=== PATIENT | male | born 1970 | race African-American/Black ===

== ENCOUNTER 2021-11-02 18:22 | Inpatient (IN) | payer OTHER ==
[2021-11-02] MEDS ORDERED: PIPERACILLIN/TAZOB 3.375 GM 3.375 GM in DEXTROSE 5%-WATER - 50 ML IVPB ONE (20:01)
[2021-11-02] MEDS ORDERED: PIPERACILLIN/TAZOB 3.375 GM 3.375 GM/50 ML BAG IVPB ONE (20:35)
[2021-11-02 21:08] LABS: BASO % 0.3 % (0-2.0); EOS % 0.1 % (0-4.5); HEMATOCRIT 33.8 % (35.4-49); HEMOGLOBIN 11.3 GM/dL (11.7-16.9); LYMPH % 7.4 % (8-40); MCH 30.9 pg (25.7-33.7); MCHC 33.6 g/dl (32.0-35.9); MEAN CELL VOLUME 92.1 fl (80-96); MEAN PLT VOLUME 8.4 fl (7.5-11.1); MONO % 12.1 % (3.8-10.2); NEUT % 80.1 % (42.8-82.8); PLATELET COUNT 100 10^3/uL (134-434); RBC 3.67 M/mm3 (4.00-5.60); RDW 14.5 % (11.9-15.9); WHITE BLOOD COUNT 11.8 K/mm3 (4.0-10.0)
[2021-11-02 21:14] LABS: CALCIUM 9.1 mg/dL (8.5-10.1)
[2021-11-02 21:15] LABS: ALBUMIN 2.7 g/dl (3.4-5.0); BLOOD UREA NITROGEN 13.7 mg/dL (7-18)
[2021-11-02 21:18] LABS: CREATININE 0.9 mg/dL (0.55-1.3)
[2021-11-02 21:20] LABS: TOT PROT 6.8 g/dl (6.4-8.2)
[2021-11-02] MEDS ORDERED: VANCOMYCIN 1 GM in D5W (PRE-DOCKED) 1,000 MG/250 ML IVPB ONE (21:38)
[2021-11-02] MEDS ORDERED: VANCOMYCIN 1 GRAM (PRE-DOCKED) 1,000 MG/250 ML BAG IVPB ONE (22:07)
[2021-11-03] MEDS ORDERED: SODIUM CHLORIDE 1,000 ML IV STA (00:37)
[2021-11-03] MEDS ORDERED: PIPERACILLIN/TAZOB 3.375 GM 3.375 GM/50 ML BAG IVPB ONE (03:12)
[2021-11-03] MEDS: PIPERACILLIN/TAZOB 3.375 GM 3.375 GM/50 ML BAG IVPB SCH ×2 (03:49→10:14)
[2021-11-03 05:42] VITALS: BMI 27.5
[2021-11-03] MEDS: SODIUM CHLORIDE 1,000 ML IV SCH ×2 (06:08→14:12)
[2021-11-03 08:30] LABS: EPI CELLS 6 /uL (0-25.1); HYALINE CASTS 1 /uL (0-3.1); PH,URINE 5.5 (5.0-8.0); URINE APPEARANCE TURBID; URINE BACTERIA 4 /uL (0-1359); URINE BILIRUBIN NEGATIVE (NEGATIVE); URINE COLOR YELLOW; URINE GLUCOSE (UA) NEGATIVE (NEGATIVE); URINE KETONE TRACE (NEGATIVE); URINE LEUK ESTERASE TRACE (NEGATIVE); URINE NITRITE NEGATIVE (NEGATIVE); URINE PROTEIN TRACE (NEGATIVE); URINE RBC 38 /uL (0-23.9); URINE UROBILINOGEN 0.2 mg/dL (0.2-1.0); URINE WBC 14 /uL (0-25.8)
[2021-11-03] MEDS: VANCOMYCIN 1 GM in D5W (PRE-DOCKED) 1,000 MG/250 ML IVPB SCH ×2 (09:18→23:00)
[2021-11-03] MEDS: NICOTINE 7 MG/24 HOURS TOPICAL PATCH TD SCH ×2 (09:18→09:20)
[2021-11-03 09:23] LABS: HEMATOCRIT 31.8 % (35.4-49); HEMOGLOBIN 10.4 GM/dL (11.7-16.9); MCH 30.4 pg (25.7-33.7); MCHC 32.8 g/dl (32.0-35.9); MEAN CELL VOLUME 92.7 fl (80-96); MEAN PLT VOLUME 8.4 fl (7.5-11.1); PLATELET COUNT 94 10^3/uL (134-434); RBC 3.43 M/mm3 (4.00-5.60); RDW 14.7 % (11.9-15.9); WHITE BLOOD COUNT 8.8 K/mm3 (4.0-10.0)
[2021-11-03 09:51] LABS: CALCIUM 8.1 mg/dL (8.5-10.1)
[2021-11-03 09:52] LABS: ALBUMIN 2.4 g/dl (3.4-5.0); BLOOD UREA NITROGEN 10.7 mg/dL (7-18)
[2021-11-03 09:53] LABS: MAGNESIUM 1.6 mg/dL (1.8-2.4)
[2021-11-03 09:55] LABS: CREATININE 0.7 mg/dL (0.55-1.3)
[2021-11-03 09:56] LABS: TOT PROT 5.9 g/dl (6.4-8.2)
[2021-11-03 09:57] LABS: BILIRUBIN,TOTAL 0.8 mg/dL (0.2-1)
[2021-11-03] MEDS ORDERED: VANCOMYCIN 1 GM in D5W (PRE-DOCKED) 1,000 MG/250 ML IVPB SCH (10:00)
[2021-11-03 12:01] LABS: ANISOCYTOSIS 0; MACROCYTOSIS 0
[2021-11-03 12:03] LABS: PLATELET ESTIMATE SLT DECREASE
[2021-11-03] MEDS ORDERED: DEXTROSE 5%-WATER - 50 ML IVPB ONE ×2 (14:38→20:28)
[2021-11-03] MEDS ORDERED: PIPERACILLIN/TAZOBACTAM 3.375 GM VIAL IVPB ONE ×2 (14:38→20:28)
[2021-11-03] MEDS ORDERED: PIPERACILLIN/TAZOB 3.375 GM 3.375 GM in DEXTROSE 5%-WATER - 3.375 GM/50 ML IVPB IVPB SCH (15:00)
[2021-11-03] MEDS ORDERED: MAGNESIUM OXIDE 400 MG TABLET (FP) PO ONE (17:01)
[2021-11-03] MEDS: PIPERACILLIN/TAZOB 3.375 GM 3.375 GM in DEXTROSE 5%-WATER - 50 ML IVPB SCH (22:04)
[2021-11-04] MEDS ORDERED: PIPERACILLIN/TAZOBACTAM 3.375 GM VIAL IVPB ONE ×4 (01:42→21:23)
[2021-11-04] MEDS ORDERED: DEXTROSE 5%-WATER - 50 ML IVPB ONE ×4 (01:43→21:24)
[2021-11-04] MEDS: PIPERACILLIN/TAZOB 3.375 GM 3.375 GM in DEXTROSE 5%-WATER - 50 ML IVPB SCH ×4 (02:15→21:29)
[2021-11-04] MEDS ORDERED: CARVEDILOL 3.125 MG TABLET (FP) PO SCH (10:00)
[2021-11-04] MEDS: PANTOPRAZOLE 40 MG TABLET PO SCH (10:10)
[2021-11-04 10:11] LABS: HEMATOCRIT 30.5 % (35.4-49); HEMOGLOBIN 10.1 GM/dL (11.7-16.9); MCH 30.7 pg (25.7-33.7); MCHC 33.1 g/dl (32.0-35.9); MEAN CELL VOLUME 92.7 fl (80-96); MEAN PLT VOLUME 8.8 fl (7.5-11.1); PLATELET COUNT 106 10^3/uL (134-434); RBC 3.29 M/mm3 (4.00-5.60); RDW 14.3 % (11.9-15.9); WHITE BLOOD COUNT 5.6 K/mm3 (4.0-10.0)
[2021-11-04] MEDS: VANCOMYCIN 1 GM in D5W (PRE-DOCKED) 1,000 MG/250 ML IVPB SCH ×2 (10:11→22:37)
[2021-11-04 10:32] LABS: ALBUMIN 2.2 g/dl (3.4-5.0); BLOOD UREA NITROGEN 8.2 mg/dL (7-18)
[2021-11-04 10:33] LABS: CALCIUM 7.9 mg/dL (8.5-10.1); MAGNESIUM 1.8 mg/dL (1.8-2.4)
[2021-11-04 10:34] LABS: PHOSPHOROUS 3.8 mg/dL (2.5-4.9)
[2021-11-04 10:35] LABS: BILIRUBIN,TOTAL 0.6 mg/dL (0.2-1); CREATININE 0.7 mg/dL (0.55-1.3); TOT PROT 5.9 g/dl (6.4-8.2)
[2021-11-04 10:38] LABS: LDL CHOLESTEROL (ONLY SJRH) 59 mg/dL (5-100)
[2021-11-04 10:39] LABS: CHOLESTEROL 91 mg/dL (50-200); TRIGLYCERIDES 80 mg/dL (0-150)
[2021-11-04] MEDS: NICOTINE 7 MG/24 HOURS TOPICAL PATCH TD SCH (10:39)
[2021-11-04 10:40] LABS: HDL CHOLESTEROL 21 mg/dL (40-60)
[2021-11-04] MEDS: SPIRONOLACTONE 25 MG TABLET PO SCH (11:09)
[2021-11-04] MEDS: FUROSEMIDE 40 MG TABLET (FP) PO SCH (11:10)
[2021-11-04 12:43] LABS: ANISOCYTOSIS 2+; MACROCYTOSIS 2+
[2021-11-04] MEDS: CARVEDILOL 3.125 MG TABLET (FP) PO SCH (21:29)
[2021-11-04] MEDS: SODIUM CHLORIDE 1,000 ML IV SCH (22:37)
[2021-11-05] MEDS ORDERED: DEXTROSE 5%-WATER - 50 ML IVPB ONE ×4 (02:29→20:49)
[2021-11-05] MEDS ORDERED: PIPERACILLIN/TAZOBACTAM 3.375 GM VIAL IVPB ONE ×4 (02:29→20:49)
[2021-11-05] MEDS: SODIUM CHLORIDE 1,000 ML IV SCH (02:33)
[2021-11-05] MEDS: PIPERACILLIN/TAZOB 3.375 GM 3.375 GM in DEXTROSE 5%-WATER - 50 ML IVPB SCH ×4 (02:34→21:10)
[2021-11-05 09:21] LABS: HEMATOCRIT 30.4 % (35.4-49); HEMOGLOBIN 10.3 GM/dL (11.7-16.9); MCH 30.7 pg (25.7-33.7); MCHC 33.8 g/dl (32.0-35.9); MEAN CELL VOLUME 90.8 fl (80-96); MEAN PLT VOLUME 8.6 fl (7.5-11.1); PLATELET COUNT 113 10^3/uL (134-434); RBC 3.35 M/mm3 (4.00-5.60); RDW 14.7 % (11.9-15.9)
[2021-11-05] MEDS: PANTOPRAZOLE 40 MG TABLET PO SCH (09:32)
[2021-11-05] MEDS: NICOTINE 7 MG/24 HOURS TOPICAL PATCH TD SCH (09:32)
[2021-11-05] MEDS: CARVEDILOL 3.125 MG TABLET (FP) PO SCH ×2 (09:32→21:10)
[2021-11-05] MEDS: FUROSEMIDE 40 MG TABLET (FP) PO SCH (09:32)
[2021-11-05] MEDS: SPIRONOLACTONE 25 MG TABLET PO SCH (09:32)
[2021-11-05 09:45] LABS: ALBUMIN 2.3 g/dl (3.4-5.0); BLOOD UREA NITROGEN 4.8 mg/dL (7-18); CALCIUM 8.3 mg/dL (8.5-10.1); MAGNESIUM 1.8 mg/dL (1.8-2.4)
[2021-11-05 09:48] LABS: CREATININE 0.6 mg/dL (0.55-1.3); PHOSPHOROUS 4.6 mg/dL (2.5-4.9)
[2021-11-05 09:50] LABS: BILIRUBIN,TOTAL 0.8 mg/dL (0.2-1)
[2021-11-05 10:40] LABS: ANISOCYTOSIS 0; MACROCYTOSIS 0
[2021-11-05] MEDS: VANCOMYCIN 1 GM in D5W (PRE-DOCKED) 1,000 MG/250 ML IVPB SCH (11:13)
[2021-11-05] MEDS ORDERED: VANCOMYCIN/WATER BAGS 1,250 MG/250 ML BAG IVPB SCH (15:15)
[2021-11-05] MEDS: VANCOMYCIN/WATER BAGS 1,250 MG/250 ML BAG IVPB SCH (21:11)
[2021-11-06] MEDS ORDERED: PIPERACILLIN/TAZOBACTAM 3.375 GM VIAL IVPB ONE ×3 (01:43→15:31)
[2021-11-06] MEDS: PIPERACILLIN/TAZOB 3.375 GM 3.375 GM in DEXTROSE 5%-WATER - 50 ML IVPB SCH ×3 (02:46→15:58)
[2021-11-06 08:43] LABS: BASO % 0.8 % (0-2.0); EOS % 2.6 % (0-4.5); HEMATOCRIT 32.9 % (35.4-49); HEMOGLOBIN 11.2 GM/dL (11.7-16.9); LYMPH % 42.9 % (8-40); MCH 30.8 pg (25.7-33.7); MEAN CELL VOLUME 90.7 fl (80-96); MEAN PLT VOLUME 8.5 fl (7.5-11.1); MONO % 20.2 % (3.8-10.2); NEUT % 33.5 % (42.8-82.8); PLATELET COUNT 129 10^3/uL (134-434); RBC 3.63 M/mm3 (4.00-5.60); RDW 14.4 % (11.9-15.9); WHITE BLOOD COUNT 5.3 K/mm3 (4.0-10.0)
[2021-11-06 08:53] LABS: ALBUMIN 2.4 g/dl (3.4-5.0); BLOOD UREA NITROGEN 6.1 mg/dL (7-18); CALCIUM 8.2 mg/dL (8.5-10.1); MAGNESIUM 1.7 mg/dL (1.8-2.4)
[2021-11-06 08:56] LABS: CREATININE 0.8 mg/dL (0.55-1.3); PHOSPHOROUS 5.1 mg/dL (2.5-4.9)
[2021-11-06 08:57] LABS: BILIRUBIN,TOTAL 0.6 mg/dL (0.2-1); TOT PROT 6.4 g/dl (6.4-8.2)
[2021-11-06] MEDS ORDERED: DEXTROSE 5%-WATER - 50 ML IVPB ONE ×2 (09:19→15:31)
[2021-11-06] MEDS: SPIRONOLACTONE 25 MG TABLET PO SCH (09:28)
[2021-11-06] MEDS: FUROSEMIDE 40 MG TABLET (FP) PO SCH (09:28)
[2021-11-06] MEDS: PANTOPRAZOLE 40 MG TABLET PO SCH (09:28)
[2021-11-06] MEDS: CARVEDILOL 3.125 MG TABLET (FP) PO SCH ×2 (09:28→21:27)
[2021-11-06] MEDS: NICOTINE 7 MG/24 HOURS TOPICAL PATCH TD SCH (09:28)
[2021-11-06] MEDS: VANCOMYCIN/WATER BAGS 1,250 MG/250 ML BAG IVPB SCH (10:50)
[2021-11-06 12:41] LABS: ANISOCYTOSIS 0; HELMET CELLS 0; HOWELL-JOLLY BODIES 0; MACROCYTOSIS 0; OVALOCYTE 0; ROULEAU 0; SICKELED CELLS 0; TARGET CELLS 0; TEAR DROP CELLS 0; TOXIC GRANULATION 0
[2021-11-06] MEDS ORDERED: MAGNESIUM OXIDE 400 MG TABLET (FP) PO ONE (17:17)
[2021-11-06] MEDS ORDERED: DEXTROSE 5%-WATER 100 ML IVPB ONE (21:25)
[2021-11-06] MEDS: CEFTRIAXONE 2 GM in DEXTROSE 5%-WATER 100 ML IVPB SCH (21:27)
[2021-11-07] MEDS ORDERED: DEXTROSE 5%-WATER 100 ML IVPB ONE (08:29)
[2021-11-07] MEDS: CEFTRIAXONE 2 GM in DEXTROSE 5%-WATER 100 ML IVPB SCH (09:07)
[2021-11-07] MEDS: NICOTINE 7 MG/24 HOURS TOPICAL PATCH TD SCH (09:07)
[2021-11-07] MEDS: FUROSEMIDE 40 MG TABLET (FP) PO SCH (09:08)
[2021-11-07] MEDS: SPIRONOLACTONE 25 MG TABLET PO SCH (09:08)
[2021-11-07] MEDS: PANTOPRAZOLE 40 MG TABLET PO SCH (09:08)
[2021-11-07] MEDS: CARVEDILOL 3.125 MG TABLET (FP) PO SCH ×2 (09:08→21:25)
[2021-11-07 10:05] LABS: BASO % 1.1 % (0-2.0); EOS % 2.5 % (0-4.5); HEMATOCRIT 36.7 % (35.4-49); HEMOGLOBIN 11.9 GM/dL (11.7-16.9); LYMPH % 39.7 % (8-40); MCH 29.6 pg (25.7-33.7); MCHC 32.3 g/dl (32.0-35.9); MEAN CELL VOLUME 91.4 fl (80-96); MEAN PLT VOLUME 9.5 fl (7.5-11.1); MONO % 15.6 % (3.8-10.2); NEUT % 41.1 % (42.8-82.8); PLATELET COUNT 165 10^3/uL (134-434); RBC 4.01 M/mm3 (4.00-5.60); RDW 14.7 % (11.9-15.9); WHITE BLOOD COUNT 7.5 K/mm3 (4.0-10.0)
[2021-11-07 10:27] LABS: CALCIUM 9.1 mg/dL (8.5-10.1)
[2021-11-07 10:28] LABS: ALBUMIN 2.6 g/dl (3.4-5.0); BLOOD UREA NITROGEN 6.4 mg/dL (7-18); MAGNESIUM 1.8 mg/dL (1.8-2.4)
[2021-11-07 10:31] LABS: CREATININE 0.7 mg/dL (0.55-1.3); PHOSPHOROUS 4.2 mg/dL (2.5-4.9)
[2021-11-07 10:32] LABS: BILIRUBIN,TOTAL 0.5 mg/dL (0.2-1); TOT PROT 7.1 g/dl (6.4-8.2)
[2021-11-08] MEDS ORDERED: MIDAZOLAM HCL 2 MG/2 ML SINGLE DOSE VIAL ONE (08:36)
[2021-11-08] MEDS ORDERED: PROPOFOL 20 ML ONE (08:37)
[2021-11-08] MEDS ORDERED: ACETAMINOPHEN INJECTION 100 ML IVPB ONE (08:37)
[2021-11-08] MEDS ORDERED: BUPIVACAINE HCL/PF 0.5% (5MG/ML) 10 ML VIAL ONE (08:38)
[2021-11-08] MEDS ORDERED: LIDOCAINE HCL 1%, 10 MG/ML (20ML VIAL) ONE (08:38)
[2021-11-08] MEDS ORDERED: GENTAMICIN SO4 80 MG/2 ML VIAL ONE (08:38)
[2021-11-08] MEDS ORDERED: KETOROLAC TROMETHAMINE 30 MG/1 ML VIAL ONE ×2 (08:40→09:12)
[2021-11-08] MEDS ORDERED: VANCOMYCIN 1,000 MG VIAL (RESTRICTED TO ID ONLY) ONE (09:00)
[2021-11-08] MEDS ORDERED: BUPIVACAINE HCL/PF 0.5% (5 MG/ML) 30 ML VIAL IJ ONE (09:05)
[2021-11-08] MEDS ORDERED: LIDOCAINE HCL 1%, 10 MG/ML (50 mL VIAL) INF ONE (09:05)
[2021-11-08] MEDS ORDERED: LIDOCAINE HCL/PF 2% SDV 5ML VIAL ONE (09:12)
[2021-11-08 11:24] LABS: BASO % 0.8 % (0-2.0); EOS % 2.4 % (0-4.5); HEMOGLOBIN 12.1 GM/dL (11.7-16.9); LYMPH % 37.3 % (8-40); MCH 30.5 pg (25.7-33.7); MCHC 33.6 g/dl (32.0-35.9); MEAN CELL VOLUME 90.7 fl (80-96); MEAN PLT VOLUME 8.2 fl (7.5-11.1); MONO % 14.5 % (3.8-10.2); PLATELET COUNT 179 10^3/uL (134-434); RBC 3.97 M/mm3 (4.00-5.60); RDW 14.5 % (11.9-15.9); WHITE BLOOD COUNT 6.4 K/mm3 (4.0-10.0)
[2021-11-08] MEDS: SPIRONOLACTONE 25 MG TABLET PO SCH (11:35)
[2021-11-08] MEDS: CARVEDILOL 3.125 MG TABLET (FP) PO SCH ×2 (11:35→22:16)
[2021-11-08] MEDS: FUROSEMIDE 40 MG TABLET (FP) PO SCH (11:35)
[2021-11-08] MEDS: PANTOPRAZOLE 40 MG TABLET PO SCH (11:37)
[2021-11-08] MEDS: NICOTINE 7 MG/24 HOURS TOPICAL PATCH TD SCH (11:37)
[2021-11-08 11:57] LABS: BASO % 0.6 % (0-2.0); EOS % 2.8 % (0-4.5); HEMATOCRIT 37.6 % (35.4-49); HEMOGLOBIN 12.5 GM/dL (11.7-16.9); LYMPH % 39.1 % (8-40); MCH 30.4 pg (25.7-33.7); MCHC 33.3 g/dl (32.0-35.9); MEAN CELL VOLUME 91.1 fl (80-96); MONO % 15.1 % (3.8-10.2); NEUT % 42.4 % (42.8-82.8); PLATELET COUNT 188 10^3/uL (134-434); RBC 4.13 M/mm3 (4.00-5.60); WHITE BLOOD COUNT 6.4 K/mm3 (4.0-10.0)
[2021-11-08 12:02] LABS: INR 1.43 (0.83-1.09); PROTHROMBIN TIME (PATIENT) 16.5 SEC (9.7-13.0)
[2021-11-08 12:04] LABS: ACTIVATED PTT 45.4 SECONDS (25.2-36.5)
[2021-11-08 12:20] LABS: CALCIUM 9.1 mg/dL (8.5-10.1)
[2021-11-08 12:21] LABS: ALBUMIN 2.6 g/dl (3.4-5.0); BLOOD UREA NITROGEN 10.2 mg/dL (7-18)
[2021-11-08 12:23] LABS: CREATININE 0.8 mg/dL (0.55-1.3)
[2021-11-08 12:25] LABS: BILIRUBIN,TOTAL 0.6 mg/dL (0.2-1); TOT PROT 7.3 g/dl (6.4-8.2)
[2021-11-08] MEDS ORDERED: ACETAMINOPHEN 1000 MG/100 ML BAG IVPB ONE (22:33)
[2021-11-08] MEDS: VANCOMYCIN/WATER 1,250 MG/250 ML BAG IVPB SCH (23:27)
[2021-11-09] MEDS ORDERED: SULFAMETHOXAZOLE 80 MG/TRIMETHOPRIM 16 MG/ML VIAL IVPB SCH (07:00)
[2021-11-09] MEDS ORDERED: IBUPROFEN 200 MG TABLET PO PRN (07:54)
[2021-11-09] MEDS ORDERED: ACETAMINOPHEN 1000 MG/100 ML BAG IVPB PRN (07:55)
[2021-11-09 08:53] LABS: BASO % 0.6 % (0-2.0); EOS % 3.6 % (0-4.5); HEMATOCRIT 34.5 % (35.4-49); HEMOGLOBIN 11.5 GM/dL (11.7-16.9); LYMPH % 31.7 % (8-40); MCH 30.4 pg (25.7-33.7); MCHC 33.3 g/dl (32.0-35.9); MEAN CELL VOLUME 91.1 fl (80-96); MEAN PLT VOLUME 8.5 fl (7.5-11.1); MONO % 15.9 % (3.8-10.2); NEUT % 48.2 % (42.8-82.8); PLATELET COUNT 182 10^3/uL (134-434); RBC 3.79 M/mm3 (4.00-5.60); RDW 14.7 % (11.9-15.9); WHITE BLOOD COUNT 6.6 K/mm3 (4.0-10.0)
[2021-11-09 09:04] LABS: CALCIUM 8.6 mg/dL (8.5-10.1)
[2021-11-09 09:05] LABS: ALBUMIN 2.4 g/dl (3.4-5.0); BLOOD UREA NITROGEN 10.5 mg/dL (7-18)
[2021-11-09 09:08] LABS: CREATININE 0.7 mg/dL (0.55-1.3)
[2021-11-09 09:10] LABS: BILIRUBIN,TOTAL 0.5 mg/dL (0.2-1); TOT PROT 6.6 g/dl (6.4-8.2)
[2021-11-09] MEDS: CARVEDILOL 3.125 MG TABLET (FP) PO SCH ×2 (09:48→21:13)
[2021-11-09] MEDS: FUROSEMIDE 40 MG TABLET (FP) PO SCH (09:48)
[2021-11-09] MEDS: PANTOPRAZOLE 40 MG TABLET PO SCH (09:48)
[2021-11-09] MEDS: SPIRONOLACTONE 25 MG TABLET PO SCH (09:48)
[2021-11-09] MEDS: NICOTINE 7 MG/24 HOURS TOPICAL PATCH TD SCH (09:49)
[2021-11-09] MEDS: VANCOMYCIN/WATER 1,250 MG/250 ML BAG IVPB SCH (10:00)
[2021-11-09] MEDS: VANCOMYCIN/WATER BAGS 1,250 MG/250 ML BAG IVPB SCH ×2 (11:27→23:47)
[2021-11-10 08:57] LABS: BASO % 0.4 % (0-2.0); EOS % 3.5 % (0-4.5); HEMATOCRIT 37.8 % (35.4-49); HEMOGLOBIN 12.7 GM/dL (11.7-16.9); LYMPH % 40.5 % (8-40); MCH 30.5 pg (25.7-33.7); MCHC 33.7 g/dl (32.0-35.9); MEAN CELL VOLUME 90.6 fl (80-96); MEAN PLT VOLUME 8.4 fl (7.5-11.1); MONO % 13.8 % (3.8-10.2); NEUT % 41.8 % (42.8-82.8); PLATELET COUNT 217 10^3/uL (134-434); RBC 4.17 M/mm3 (4.00-5.60); RDW 14.6 % (11.9-15.9)
[2021-11-10 08:59] LABS: ALBUMIN 2.8 g/dl (3.4-5.0); CALCIUM 9.2 mg/dL (8.5-10.1)
[2021-11-10 09:00] LABS: BLOOD UREA NITROGEN 8.2 mg/dL (7-18)
[2021-11-10 09:02] LABS: CREATININE 0.7 mg/dL (0.55-1.3)
[2021-11-10 09:03] LABS: BILIRUBIN,TOTAL 0.6 mg/dL (0.2-1)
[2021-11-10 09:04] LABS: TOT PROT 7.7 g/dl (6.4-8.2)
[2021-11-10] MEDS: SPIRONOLACTONE 25 MG TABLET PO SCH (09:42)
[2021-11-10] MEDS: CARVEDILOL 3.125 MG TABLET (FP) PO SCH ×2 (09:43→21:21)
[2021-11-10] MEDS: FUROSEMIDE 40 MG TABLET (FP) PO SCH (09:43)
[2021-11-10] MEDS: PANTOPRAZOLE 40 MG TABLET PO SCH (09:43)
[2021-11-10] MEDS: NICOTINE 7 MG/24 HOURS TOPICAL PATCH TD SCH (09:43)
[2021-11-10] MEDS: VANCOMYCIN/WATER BAGS 1,250 MG/250 ML BAG IVPB SCH (10:48)
[2021-11-11] MEDS: VANCOMYCIN/WATER BAGS 1,250 MG/250 ML BAG IVPB SCH ×2 (00:28→12:21)
[2021-11-11 10:07] LABS: BASO % 0.8 % (0-2.0); EOS % 3.8 % (0-4.5); HEMATOCRIT 36.4 % (35.4-49); HEMOGLOBIN 12.3 GM/dL (11.7-16.9); LYMPH % 40.3 % (8-40); MCH 30.6 pg (25.7-33.7); MCHC 33.7 g/dl (32.0-35.9); MEAN CELL VOLUME 90.9 fl (80-96); MEAN PLT VOLUME 8.2 fl (7.5-11.1); MONO % 12.6 % (3.8-10.2); NEUT % 42.5 % (42.8-82.8); PLATELET COUNT 199 10^3/uL (134-434); RDW 14.4 % (11.9-15.9); WHITE BLOOD COUNT 5.6 K/mm3 (4.0-10.0)
[2021-11-11 10:18] LABS: CALCIUM 9.5 mg/dL (8.5-10.1)
[2021-11-11 10:19] LABS: ALBUMIN 2.7 g/dl (3.4-5.0); BLOOD UREA NITROGEN 7.8 mg/dL (7-18)
[2021-11-11 10:22] LABS: CREATININE 0.8 mg/dL (0.55-1.3)
[2021-11-11] MEDS: NICOTINE 7 MG/24 HOURS TOPICAL PATCH TD SCH (10:22)
[2021-11-11 10:24] LABS: BILIRUBIN,TOTAL 0.6 mg/dL (0.2-1); TOT PROT 7.4 g/dl (6.4-8.2)
[2021-11-11] MEDS: SPIRONOLACTONE 25 MG TABLET PO SCH (12:16)
[2021-11-11] MEDS: FUROSEMIDE 40 MG TABLET (FP) PO SCH (12:20)
[2021-11-11] MEDS: PANTOPRAZOLE 40 MG TABLET PO SCH (12:20)
[2021-11-11] MEDS: CARVEDILOL 3.125 MG TABLET (FP) PO SCH (12:20)
[2021-11-11 14:10] VITALS: BP 112/61; PULSE 63; TEMP 97.9
== END 2021-11-11 17:56 | disposition home or self-care (01) | DRG 314 ==
LOC: JER 18:22 → JERBED 22:21 → J6S 11-03 05:10
PROVIDERS: ADMIT Internal Medicine; ATTEND Internal Medicine
PROC: 0Y6Q0Z1 Detachment at Left 1st Toe, High, Open Approach (ICD-10-PCS; principal; 2021-11-08 08:30)
PROC: 02HV33Z Insertion of Infusion Device into Superior Vena Cava, Percutaneous Approach (ICD-10-PCS; 2021-11-11)
PROC: B518ZZA Fluoroscopy of Superior Vena Cava, Guidance (ICD-10-PCS; 2021-11-11)
DX: M86.172 Other acute osteomyelitis, left ankle and foot (principal); L03.116 Cellulitis of left lower limb; K76.0 Fatty (change of) liver, not elsewhere classified; F17.200 Nicotine dependence, unspecified, uncomplicated; D64.9 Anemia, unspecified; R00.0 Tachycardia, unspecified; D72.829 Elevated white blood cell count, unspecified; I95.9 Hypotension, unspecified; B35.1 Tinea unguium; G62.9 Polyneuropathy, unspecified; M48.07 Spinal stenosis, lumbosacral region; K70.30 Alcoholic cirrhosis of liver without ascites; L27.0 Generalized skin eruption due to drugs and medicaments taken internally; T36.1X5A Adverse effect of cephalosporins and other beta-lactam antibiotics, initial encounter; L02.612 Cutaneous abscess of left foot; B95.62 Methicillin resistant Staphylococcus aureus infection as the cause of diseases classified elsewhere
CPT/HCPCS: 36415; 36569; 71046-TC-FY; 72148-TC; 73502-TC-LT-FY; 73552-TC-LT-FY; 73590-TC-LT-FY; 73630-TC-LT; 73719-LT; 77001-TC-FY; 80053; 80061; 81003; 83036; 83735; 84100; 85025; 85610; 85651; 85730; 86140; 87040; 87070; 87075; 87086; 87186; 87205; 88304-TC; 88305-TC; 88311-TC; 93005; 93010; 94760; 99285-25; A9579; C1751; C9803; G0480; U0003; U0005

== ENCOUNTER 2022-08-04 04:26 | Day surgery (SDC) | payer OTHER ==
[2022-08-03 14:27] VITALS: BMI 27.5
[2022-08-04] MEDS ORDERED: BUPIVACAINE HCL/PF 0.75% 10 ML VIAL ONE (07:53)
[2022-08-04] MEDS ORDERED: LIDOCAINE HCL/PF 1% SDV 5ML VIAL ONE (07:54)
[2022-08-04 11:27] VITALS: RESP 18
[2022-08-04] MEDS ORDERED: BUPIVACAINE HCL/PF 0.75% 10 ML VIAL NR ONE (13:31)
[2022-08-04] MEDS ORDERED: LIDOCAINE HCL 1%, 10 MG/ML (50 mL VIAL) NR ONE (13:32)
[2022-08-04 13:57] VITALS: BP 138/74; PULSE 72; TEMP 97.9
== END 2022-08-04 14:00 | disposition home or self-care (01) ==
LOC: JASU-SURG 04:26
PROVIDERS: ATTEND Pain Medicine Pain Medicine
PROC: BR16YZZ Fluoroscopy of Lumbar Facet Joint(s) using Other Contrast (ICD-10-PCS; 2022-08-04)
PROC: 3E0T3BZ Introduction of Anesthetic Agent into Peripheral Nerves and Plexi, Percutaneous Approach (ICD-10-PCS; principal; 2022-08-04 13:30)
DX: M47.816 Spondylosis without myelopathy or radiculopathy, lumbar region (principal)
CPT/HCPCS: 76000-TC-FY

== ENCOUNTER 2022-09-19 04:17 | Day surgery (SDC) | payer OTHER ==
[2022-09-12 15:13] VITALS: BMI 32.2
[~2022-09-19 04:17] MED LIST: BUPIVACAINE HCL/PF 0.75% 10 ML VIAL PNB ONE; LIDOCAINE 1% P/F 10 MG/ML VIAL PNB ONE
[2022-09-19] MEDS ORDERED: LIDOCAINE HCL/PF 1% SDV 5ML VIAL ONE (07:25)
[2022-09-19] MEDS ORDERED: BUPIVACAINE HCL/PF 0.75% 10 ML VIAL ONE (07:25)
[2022-09-19 08:16] VITALS: RESP 18
[2022-09-19] MEDS ORDERED: LIDOCAINE 1% P/F 10 MG/ML VIAL PNB ONE (09:05)
[2022-09-19] MEDS ORDERED: BUPIVACAINE HCL/PF 0.75% 10 ML VIAL PNB ONE (09:05)
[2022-09-19 09:51] VITALS: BP 122/82; PULSE 64; TEMP 98.2
== END 2022-09-19 09:40 | disposition home or self-care (01) ==
LOC: JASU-SURG 04:17
PROVIDERS: ATTEND Pain Medicine Pain Medicine
PROC: BR16YZZ Fluoroscopy of Lumbar Facet Joint(s) using Other Contrast (ICD-10-PCS; 2022-09-19)
PROC: 3E0T3BZ Introduction of Anesthetic Agent into Peripheral Nerves and Plexi, Percutaneous Approach (ICD-10-PCS; principal; 2022-09-19 09:30)
DX: M47.816 Spondylosis without myelopathy or radiculopathy, lumbar region (principal)
CPT/HCPCS: 76000-TC-FY

== ENCOUNTER 2022-10-13 04:03 | Day surgery (SDC) | payer OTHER ==
[2022-10-10 17:29] VITALS: BMI 32.2
[~2022-10-13 04:03] MED LIST changes: +BUPIVACAINE HCL/PF 0.75% 10 ML VIAL NR ONE; -BUPIVACAINE HCL/PF 0.75% 10 ML VIAL PNB ONE; +DEXAMETHASONE SOD PHOSPHATE 10 MG/1 ML VIAL IVPUSH ONE; +LIDOCAINE 1% P/F 10 MG/ML VIAL INF ONE; -LIDOCAINE 1% P/F 10 MG/ML VIAL PNB ONE; +LIDOCAINE HCL/PF 2% SDV 5ML VIAL INF ONE
[2022-10-13] MEDS ORDERED: DEXAMETHASONE SOD PHOSPHATE 10 MG/1 ML VIAL ONE (07:20)
[2022-10-13] MEDS ORDERED: BUPIVACAINE HCL/PF 0.75% 10 ML VIAL ONE (07:20)
[2022-10-13] MEDS ORDERED: LIDOCAINE HCL/PF 2% SDV 5ML VIAL ONE (07:20)
[2022-10-13] MEDS ORDERED: LIDOCAINE HCL/PF 1% SDV 5ML VIAL ONE (07:20)
[2022-10-13 11:35] VITALS: RESP 18
[2022-10-13] MEDS ORDERED: LIDOCAINE HCL/PF 2% SDV 5ML VIAL INF ONE ×2 (12:35)
[2022-10-13] MEDS ORDERED: LIDOCAINE 1% P/F 10 MG/ML VIAL INF ONE (12:35)
[2022-10-13] MEDS ORDERED: BUPIVACAINE HCL/PF 0.75% 10 ML VIAL NR ONE ×2 (12:35)
[2022-10-13] MEDS ORDERED: DEXAMETHASONE SOD PHOSPHATE 10 MG/1 ML VIAL IVPUSH ONE ×2 (12:35)
[2022-10-13 13:21] VITALS: BP 124/80; PULSE 60; TEMP 98
== END 2022-10-13 13:17 | disposition home or self-care (01) ==
LOC: JASU-SURG 04:03
PROVIDERS: ATTEND Pain Medicine Pain Medicine
PROC: 005Y3ZZ Destruction of Lumbar Spinal Cord, Percutaneous Approach (ICD-10-PCS; principal; 2022-10-13 12:45)
DX: M47.816 Spondylosis without myelopathy or radiculopathy, lumbar region (principal)
CPT/HCPCS: 76000-TC-FY; J1100

== ENCOUNTER 2022-11-14 04:18 | Day surgery (SDC) | payer OTHER ==
[2022-11-10 13:19] VITALS: BMI 32.2
[2022-11-14 10:59] VITALS: BP 127/85; PULSE 62; RESP 20; TEMP 98
== END 2022-11-14 11:10 | disposition home or self-care (01) ==
LOC: JASU-SURG 04:18
PROVIDERS: ATTEND Pain Medicine Pain Medicine
PROC: 015B3ZZ Destruction of Lumbar Nerve, Percutaneous Approach (ICD-10-PCS; principal; 2022-11-14 10:00)
DX: M47.816 Spondylosis without myelopathy or radiculopathy, lumbar region (principal)
CPT/HCPCS: 76000-TC-FY

== ENCOUNTER 2023-01-02 04:40 | Day surgery (SDC) | payer OTHER ==
[2022-12-29 15:46] VITALS: BMI 26.2
[~2023-01-02 04:40] MED LIST changes: -BUPIVACAINE HCL/PF 0.75% 10 ML VIAL NR ONE; -DEXAMETHASONE SOD PHOSPHATE 10 MG/1 ML VIAL IVPUSH ONE; -LIDOCAINE 1% P/F 10 MG/ML VIAL INF ONE; -LIDOCAINE HCL/PF 2% SDV 5ML VIAL INF ONE; +TRIAMCINOLONE ACET 40MG/1ML VIAL IM ONE
[2023-01-02] MEDS ORDERED: LIDOCAINE HCL/PF 1% SDV 5ML VIAL ONE (07:28)
[2023-01-02] MEDS ORDERED: DEXAMETHASONE SOD PHOSPHATE 10 MG/1 ML VIAL ONE (07:29)
[2023-01-02] MEDS ORDERED: ACETAMINOPHEN 500 MG TABLET (FP) PO PRN (11:07)
[2023-01-02 11:14] VITALS: RESP 18
[2023-01-02] MEDS ORDERED: BUPIVACAINE HCL/PF 0.25% (2.5MG/ML) 10 ML VIAL ONE (12:40)
[2023-01-02] MEDS ORDERED: TRIAMCINOLONE ACET 40MG/1ML VIAL ONE (12:40)
[2023-01-02] MEDS ORDERED: LIDOCAINE 1% P/F 10 MG/ML VIAL INF ONE ×2 (12:46)
[2023-01-02] MEDS ORDERED: IOHEXOL 180 MG/1 ML ML IJ ONE (12:47)
[2023-01-02] MEDS ORDERED: BUPIVACAINE HCL/PF 0.5% (5MG/ML) 10 ML VIAL IJ ONE ×2 (12:47)
[2023-01-02] MEDS ORDERED: TRIAMCINOLONE ACET 40MG/1ML VIAL IM ONE (12:48)
[2023-01-02 15:21] VITALS: BP 136/82; PULSE 50; TEMP 98.6
== END 2023-01-02 13:14 | disposition home or self-care (01) ==
LOC: JASU-SURG 04:40
PROVIDERS: ATTEND Pain Medicine Pain Medicine
PROC: 3E0U3BZ Introduction of Anesthetic Agent into Joints, Percutaneous Approach (ICD-10-PCS; 2023-01-02)
PROC: 3E0U33Z Introduction of Anti-inflammatory into Joints, Percutaneous Approach (ICD-10-PCS; principal; 2023-01-02 12:15)
DX: M16.12 Unilateral primary osteoarthritis, left hip (principal)
CPT/HCPCS: 76000-TC-FY; J1100

== ENCOUNTER 2023-04-06 08:57 | Day surgery (SDC) | payer OTHER ==
[2023-03-28 15:35] VITALS: BMI 25.0
[2023-04-06] MEDS ORDERED: BUPIVACAINE HCL/PF 2.5 MG/ML - 30 ML VIAL IJ ONE (09:29)
[2023-04-06] MEDS ORDERED: MIDAZOLAM HCL 2 MG/2 ML SINGLE DOSE VIAL ONE (09:48)
[2023-04-06] MEDS ORDERED: VANCOMYCIN 1,000 MG VIAL (RESTRICTED TO ID ONLY) ONE (09:49)
[2023-04-06] MEDS ORDERED: DEXAMETHASONE SOD PHOSPHATE/PF 10 MG/ML SDV ONE (09:49)
[2023-04-06] MEDS ORDERED: ROPIVACAINE HCL 0.5% 30ML VIAL ONE (09:49)
[2023-04-06] MEDS ORDERED: PROPOFOL 20 ML ONE ×4 (10:37→12:57)
[2023-04-06] MEDS ORDERED: oxyCODONE HCL 5 MG TABLET PO PRN (13:33)
[2023-04-06] MEDS ORDERED: ONDANSETRON 4 MG/2 ML VIAL IVPUSH PRN (13:33)
[2023-04-06] MEDS ORDERED: LACTATED RINGERS SOLUTION 1,000 ML IV SCH (13:45)
[2023-04-06] MEDS ORDERED: FENTANYL CITRATE/PF 50 MCG/ML VIAL ONE ×2 (13:56→14:23)
[2023-04-06 15:19] VITALS: RESP 20
[2023-04-06 17:31] VITALS: BP 120/82; PULSE 62; TEMP 97.2
== END 2023-04-06 16:40 | disposition home or self-care (01) ==
LOC: FASU 08:57
PROVIDERS: ATTEND Orthopaedic Surgery Sports Medicine
PROC: 0SBB4ZZ Excision of Left Hip Joint, Percutaneous Endoscopic Approach (ICD-10-PCS; principal; 2023-04-06 11:10)
DX: S73.192A Other sprain of left hip, initial encounter (principal); M25.852 Other specified joint disorders, left hip; X58.XXXA Exposure to other specified factors, initial encounter; Y93.9 Activity, unspecified
CPT/HCPCS: 73502-TC-LT-FY; 94760